=== PATIENT | female | born 1985 | race Caucasian/White ===

== ENCOUNTER 2021-08-20 11:57 | Outpatient (CLI) | payer BC | END 2021-08-20 11:58 | disposition home or self-care (01) | LOC: CSHLAB 11:57 | PROVIDERS: ATTEND Obstetrics & Gynecology | DX: Z01.812 Encounter for preprocedural laboratory examination (principal); Z20.822 Contact with and (suspected) exposure to COVID-19; O02.1 Missed abortion | CPT/HCPCS: 85027; 86850; 86900; 86901; U0003; U0005 ==

== ENCOUNTER → 2021-08-24 | Day surgery (SDC) | payer BC ==
[2021-08-20 15:38] LABS: Mean Corpuscular HGB CONC 33.3 g/dL (32.0-36.0); Mean Corpuscular Hemoglobin 29.8 pg (27.0-33.0); Mean Corpuscular Volume 89.4 fl (81.6-98.3); Mean Platelet Volume 10.1 fl (7.4-10.4); Platelet Count 292 10x3/uL (150-450); RBC Distribution Width 12.2 % (11.5-14.5); Red Blood Cell (RBC) Count 4.36 10x6/uL (3.90-5.03); White Blood Cell (WBC) Count 6.7 10x3/uL (3.5-10.5)
[2021-08-20 19:43] LABS: SARS-CoV-2 PCR by NAA Not Detected (NotDetected)
[2021-08-23 09:52] VITALS: BMI 34.2
[~2021-08-24] MED LIST: CeleCOXIB 100 MG CAP ONE; Dexamethasone 4 mg/ml Vial ONE; Fentanyl 100 MCG/2 ML VIAL ONE; Ketorolac Tromethamine 30 MG/ML VIAL ONE; Lidocaine 1% PF 5 ML VIAL ONE; Midazolam HCl 2 mg/2 ml Vial ONE; Morphine 4 MG/ML VIAL ONE; Ondansetron PF 4 MG/2 ML Vial ONE; PROPOFOL 20 ML ONE
== END ==
LOC: CSHSDC 10:01
PROVIDERS: ATTEND Obstetrics & Gynecology
PROC: 10D17Z9 Manual Extraction of Products of Conception, Retained, Via Natural or Artificial Opening (ICD-10-PCS; principal; 2021-08-24)
DX: O02.1 Missed abortion (principal); J45.909 Unspecified asthma, uncomplicated; I10 Essential (primary) hypertension; Z88.5 Allergy status to narcotic agent; Z79.899 Other long term (current) drug therapy
CPT/HCPCS: 36415; 85027; 86850; 86900; 86901; 88305; J1100; J1885; J2250; J2270; J2405; J2704; J3010; U0003; U0005

== ENCOUNTER 2022-08-23 15:59 | Inpatient (IN) | payer BC ==
[~2022-08-23 15:59] MED LIST changes: +Bupivacaine 0.25% HCL 30 ML VIAL ONE; +Bupivacaine/Epinephrine 0.25% 30 ML VIAL ONE; -CeleCOXIB 100 MG CAP ONE; -Dexamethasone 4 mg/ml Vial ONE; -Fentanyl 100 MCG/2 ML VIAL ONE; -Ketorolac Tromethamine 30 MG/ML VIAL ONE; -Lidocaine 1% PF 5 ML VIAL ONE; +Lidocaine 2% PF 5 ML VIAL ONE; -Midazolam HCl 2 mg/2 ml Vial ONE; -Morphine 4 MG/ML VIAL ONE; -Ondansetron PF 4 MG/2 ML Vial ONE; -PROPOFOL 20 ML ONE
[2022-08-23 16:36] VITALS: BMI 36.3
[2022-08-23] MEDS ORDERED: Lorazepam 2 MG/ML VIAL SLOW IVP PRN ×2 (16:47→17:13)
[2022-08-23] MEDS ORDERED: hydrALAZINE 20 MG/ML VIAL SLOW IVP PRN ×3 (16:47→17:13)
[2022-08-23] MEDS ORDERED: Magnesium Sulfate 20 gm/500 ml 20 GM/500 ML BAG ONE (17:02)
[2022-08-23] MEDS ORDERED: hydrALAZINE 20 MG/ML VIAL ONE (17:03)
[2022-08-23] MEDS ORDERED: Ondansetron PF 4 MG/2 ML Vial IVP PRN (17:13)
[2022-08-23] MEDS ORDERED: Lidocaine 1% (PF) 30 ML VIAL SC PRN (17:13)
[2022-08-23] MEDS ORDERED: Calcium Gluc 4.6 MEQ/10 ML (100 MG/ML) SLOW IVP PRN (17:13)
[2022-08-23] MEDS ORDERED: Promethazine HCl 25 MG/ML VIAL IM PRN (17:13)
[2022-08-23] MEDS ORDERED: Labetalol HCl 100 MG/20 ML VIAL SLOW IVP PRN (17:13)
[2022-08-23] MEDS ORDERED: Ibuprofen 800 MG TAB PO PRN (17:13)
[2022-08-23] MEDS ORDERED: NS w/ Oxytocin 30 units 500 ML IV SCH ×2 (17:15)
[2022-08-23] MEDS ORDERED: Penicillin G Potassium 5 MILL.UNITS in Sodium Chloride 0.9% 100 ML IVPB SCH (17:15)
[2022-08-23 17:36] LABS: #Eosinphils 0.1 10x3/uL (0.0-0.5); #Monocytes 0.6 10x3/uL (0.0-1.1); #Neutrophils 8.2 10x3/uL (1.5-8.4); %Basophils 0.2 % (0.0-2.0); %Eosinophils 0.4 % (0.0-6.0); %Lymphocytes 21.1 % (18.0-47.0); %Monocytes 5.1 % (0.0-10.0); %Neutrophils 72.2 % (40.0-75.0); Hemoglobin 12.1 g/dL (12.0-15.5); Mean Corpuscular HGB CONC 35.4 g/dL (32.0-36.0); Mean Corpuscular Hemoglobin 30.5 pg (27.0-33.0); Mean Corpuscular Volume 86.1 fl (81.6-98.3); Mean Platelet Volume 10.1 fl (7.4-10.4); Platelet Count 288 10x3/uL (150-450); RBC Distribution Width 13.6 % (11.5-14.5); Red Blood Cell (RBC) Count 3.97 10x6/uL (3.90-5.03); White Blood Cell (WBC) Count 11.4 10x3/uL (3.5-10.5)
[2022-08-23 17:49] LABS: ALT (SGPT) Less than 6 U/L (8-55); AST (SGOT) 13 U/L (5-34); Albumin 3.5 g/dL (3.5-5.0); Alkaline Phosphatase 141 U/L (40-110); Anion Gap 14 mmol/L (10-20); BUN (Urea Nitrogen) 6 mg/dL (7.0-18.7); Bilirubin, Total 0.3 mg/dL (0.2-1.2); Calc. Creatinine Clearance 165 mL/min (70-130); Calcium 9.4 mg/dL (7.8-10.44); Carbon Dioxide 20 mmol/L (22-29); Chloride 105 mmol/L (98-107); Estimated GFR 116; Globulin 2.9 g/dL (2.4-3.5); Glucose 89 mg/dL (70-105); Potassium 3.4 mmol/L (3.5-5.1); Protein, Total 6.4 g/dL (6.0-8.3); Sodium 136 mmol/L (136-145)
[2022-08-23 18:09] LABS: Syphilis Antibody Nonreactive (Nonreactive); Syphilis Antibody Index 0.04 S/CO (<1.00 Non-Reactive)
[2022-08-23 18:10] LABS: HBSAg Index 0.18 S/CO (0-0.99); Hep B Surf Ag Non-Reactive S/CO (NonReactive)
[2022-08-23] MEDS: Labetalol HCl 100 MG/20 ML VIAL SLOW IVP PRN (18:19)
[2022-08-23 18:31] LABS: Creatinine, Urine 63.59 mg/dL (47-110)
[2022-08-23] MEDS: Misoprostol 100 MCG TAB VAG SCH ×2 (19:23→22:45)
[2022-08-24] MEDS ORDERED: Fentanyl 2 mcg/Bup 0.1% Cadd 100 ML ONE ×2 (01:11→08:20)
[2022-08-24] MEDS ORDERED: Moisturizing Cream (Eucerin) 113 GM JAR TOP PRN ×2 (01:52→12:57)
[2022-08-24] MEDS ORDERED: diphenhydrAMINE 50 MG/ML VIAL IVP PRN ×2 (01:52→12:57)
[2022-08-24] MEDS ORDERED: Acetaminophen 325 MG TAB PO PRN ×2 (01:52→12:57)
[2022-08-24] MEDS ORDERED: Naloxone HCl 0.4 mg/ml Vial IVP PRN ×4 (01:52→12:57)
[2022-08-24] MEDS ORDERED: Promethazine HCl 25 MG/ML VIAL IM PRN ×2 (01:52→12:57)
[2022-08-24] MEDS ORDERED: Lactated Ringer's 500 ML IV PRN ×2 (01:52→12:57)
[2022-08-24] MEDS ORDERED: Ondansetron PF 4 MG/2 ML Vial IVP PRN ×2 (01:52→12:57)
[2022-08-24] MEDS ORDERED: ePHEDrine Sulfate 50 MG/10 ML VIAL SLOW IVP PRN ×2 (01:52→12:57)
[2022-08-24] MEDS ORDERED: Communication Order-Pharmacy FS SCH ×2 (02:00→13:00)
[2022-08-24] MEDS ORDERED: Fentanyl 2 mcg/Bupivacaine 0.1% Cassette 100 ML EPIDURAL SCH (02:00)
[2022-08-24] MEDS ORDERED: Magnesium Sulfate 20 gm/500 ml 20 GM/500 ML BAG ONE ×2 (02:10→12:27)
[2022-08-24 02:30] LABS: SARS-CoV-2 NAA Rapid Test Not Detected (NotDetected)
[2022-08-24] MEDS ORDERED: Betamet Acet/Betamet Na Ph 30 MG/5 ML VIAL IM SCH (04:00)
[2022-08-24] MEDS: Misoprostol 100 MCG TAB VAG SCH (05:20)
[2022-08-24] MEDS: Lactated Ringer's 1,000 ML IV SCH (05:27)
[2022-08-24] MEDS: Penicillin G 2.5 MILL.units 2.5 MILL.UNITS in Premix Bag 1 BAG IVPB SCH ×2 (06:21→06:22)
[2022-08-24] MEDS: Levothyroxine Sodium 75 MCG TAB PO SCH (07:54)
[2022-08-24] MEDS: Labetalol HCl 100 MG/20 ML VIAL SLOW IVP PRN ×2 (09:44→17:30)
[2022-08-24] MEDS: NIFEdipine XL 30 MG TAB PO SCH (09:44)
[2022-08-24] MEDS: Misoprostol 100 MCG TAB PO SCH ×2 (12:22→18:01)
[2022-08-25] MEDS ORDERED: Magnesium Sulfate 20 gm/500 ml 20 GM/500 ML BAG ONE ×2 (00:02→10:06)
[2022-08-25] MEDS: Lactated Ringer's 1,000 ML IV SCH (00:56)
[2022-08-25] MEDS ORDERED: Calcium Carbonate 500 MG ChewTAB ONE (01:16)
[2022-08-25] MEDS ORDERED: Penicillin G Potassium 5 MILL.UNITS VIAL ONE (01:18)
[2022-08-25] MEDS: Levothyroxine Sodium 75 MCG TAB PO SCH (06:41)
[2022-08-25] MEDS: Penicillin G 2.5 MILL.units 2.5 MILL.UNITS in Premix Bag 1 BAG IVPB SCH ×2 (06:42→06:43)
[2022-08-25] MEDS: NIFEdipine XL 30 MG TAB PO SCH ×2 (06:42→07:20)
[2022-08-25] MEDS ORDERED: CEFAZOLIN 2 GM VIAL ONE (08:49)
[2022-08-25] MEDS ORDERED: Famotidine/PF 20 mg/2ml Vial ONE (08:50)
[2022-08-25] MEDS ORDERED: Bicitra 30 ML UDCUP ONE (08:50)
[2022-08-25] MEDS: hydrALAZINE 20 MG/ML VIAL SLOW IVP PRN ×2 (08:52→14:20)
[2022-08-25 09:09] LABS: Magnesium 6.3 mg/dL (1.6-2.6)
[2022-08-25] MEDS ORDERED: Carboprost 250 MCG/ML AMP ONE ×2 (09:10→15:09)
[2022-08-25] MEDS ORDERED: Misoprostol 200 MCG TAB ONE ×2 (09:10→14:47)
[2022-08-25] MEDS ORDERED: Tranexamic Acid 1,000 MG/10 ML VIAL ONE ×2 (09:10→15:28)
[2022-08-25] MEDS ORDERED: Oxytocin 10 UNITS/ML VIAL ONE ×2 (09:17→10:11)
[2022-08-25] MEDS ORDERED: Dexamethasone 4 mg/ml Vial ONE (09:18)
[2022-08-25] MEDS ORDERED: Ondansetron PF 4 MG/2 ML Vial ONE (09:18)
[2022-08-25] MEDS ORDERED: Lidocaine 2% Jelly 5 ML TUBE ONE (09:19)
[2022-08-25] MEDS ORDERED: Morphine PF 10 MG/10 ML VIAL ONE (09:20)
[2022-08-25] MEDS ORDERED: Bicitra 30 ML UDCUP PO PRN (09:21)
[2022-08-25] MEDS ORDERED: Famotidine/PF 20 mg/2ml Vial SLOW IVP PRN (09:21)
[2022-08-25] MEDS ORDERED: CEFAZOLIN 2 GM in Sodium Chloride 0.9% 100 ML IVPB SCH (09:30)
[2022-08-25] MEDS ORDERED: Azithromycin 500 MG in Sodium Chloride 0.9% 250 ML 250 ML IVPB SCH (09:30)
[2022-08-25] MEDS ORDERED: Lidocaine 2% MPF 10 ML AMP (For Epidural Use) ONE (09:47)
[2022-08-25] MEDS ORDERED: Ketamine 50 MG/ML (10ML VIAL) ONE (09:59)
[2022-08-25] MEDS ORDERED: Fentanyl 100 MCG/2 ML VIAL ONE ×2 (10:02→15:42)
[2022-08-25] MEDS ORDERED: Acetaminophen/Codeine 30-300mg Tablet PO PRN ×2 (10:34)
[2022-08-25 10:47] LABS: RapidComm Collect By RN
[2022-08-25 10:48] LABS: RapidComm Collect By RN; pH (Cord, venous) 7.371 (7.250-7.350)
[2022-08-25] MEDS ORDERED: Ondansetron PF 4 MG/2 ML Vial IVP PRN (10:51)
[2022-08-25] MEDS ORDERED: Fentanyl 100 MCG/2 ML VIAL SLOW IVP PRN (10:51)
[2022-08-25] MEDS ORDERED: Promethazine HCl 25 MG SUPP PR PRN (10:51)
[2022-08-25] MEDS ORDERED: Promethazine HCl 25 MG/ML VIAL IM PRN (10:51)
[2022-08-25] MEDS ORDERED: Moisturizing Cream (Eucerin) 113 GM JAR TOP PRN (10:51)
[2022-08-25] MEDS ORDERED: diphenhydrAMINE 50 MG/ML VIAL IVP PRN (10:51)
[2022-08-25] MEDS ORDERED: Naloxone HCl 0.4 mg/ml Vial IVP PRN ×2 (10:51)
[2022-08-25] MEDS ORDERED: HYDROmorphone 2 MG/ML VIAL SLOW IVP PRN (10:51)
[2022-08-25] MEDS ORDERED: Naloxone HCl 0.4 mg/ml Vial IV PRN (10:51)
[2022-08-25] MEDS ORDERED: Ondansetron HCl/PF 4 MG/2 ML Vial IVP PRN (10:51)
[2022-08-25] MEDS ORDERED: Meperidine HCl/PF 25 MG/ML VIAL SLOW IVP PRN (10:51)
[2022-08-25] MEDS ORDERED: Ketorolac Tromethamine 30 MG/ML VIAL IVP SCH (11:00)
[2022-08-25] MEDS ORDERED: Communication Order-Pharmacy FS SCH (11:00)
[2022-08-25] MEDS: Ketorolac Tromethamine 30 MG/ML VIAL IVP PRN ×2 (12:52→20:21)
[2022-08-25] MEDS ORDERED: hydrALAZINE 20 MG/ML VIAL ONE (13:19)
[2022-08-25] MEDS ORDERED: hydrALAZINE 20 MG/ML VIAL SLOW IVP PRN (14:32)
[2022-08-25] MEDS ORDERED: Labetalol HCl 100 MG/20 ML VIAL SLOW IVP PRN ×2 (14:32)
[2022-08-25] MEDS ORDERED: Carboprost 250 MCG/ML AMP IM SCH (15:30)
[2022-08-25] MEDS ORDERED: Misoprostol 200 MCG TAB PR SCH (15:30)
[2022-08-25] MEDS ORDERED: Fentanyl 100 MCG/2 ML VIAL SLOW IVP SCH (16:00)
[2022-08-25] MEDS ORDERED: Labetalol HCl 100 MG TAB PO STA (16:43)
[2022-08-25 16:59] LABS: Hemoglobin 10.8 g/dL (12.0-15.5); Mean Corpuscular HGB CONC 31.8 g/dL (32.0-36.0); Mean Corpuscular Hemoglobin 30.1 pg (27.0-33.0); Mean Corpuscular Volume 94.7 fl (81.6-98.3); Mean Platelet Volume 11.1 fl (7.4-10.4); Platelet Count 220 10x3/uL (150-450); RBC Distribution Width 14.3 % (11.5-14.5); Red Blood Cell (RBC) Count 3.59 10x6/uL (3.90-5.03); White Blood Cell (WBC) Count 19.8 10x3/uL (3.5-10.5)
[2022-08-25 17:12] LABS: D-Dimer Test 4.4 mg/L FEU (0.19-0.50); INR-International Normal Ratio 0.8; Prothrombin Time 8.9 sec (9.5-12.1)
[2022-08-25 17:13] LABS: PTT 21.2 sec (22.0-33.0)
[2022-08-26] MEDS ORDERED: Ondansetron PF 4 MG/2 ML Vial IVP PRN (03:12)
[2022-08-26] MEDS ORDERED: hydrALAZINE 20 MG/ML VIAL SLOW IVP PRN ×2 (03:12→12:38)
[2022-08-26] MEDS ORDERED: diphenhydrAMINE 25 MG CAP PO PRN (03:12)
[2022-08-26] MEDS ORDERED: Simethicone Chewable 80 MG TAB PO PRN (03:12)
[2022-08-26] MEDS ORDERED: NS w/ Oxytocin 30 units 500 ML IV SCH (03:12)
[2022-08-26] MEDS ORDERED: Misoprostol 200 MCG TAB PR PRN (03:12)
[2022-08-26] MEDS ORDERED: Boostrix 0.5 ML (Tdap) VIAL (>/=7 yrs of age) IM ONE (03:12)
[2022-08-26] MEDS ORDERED: Ferrous Sulfate 325 MG TAB PO SCH (03:30)
[2022-08-26] MEDS: Ketorolac Tromethamine 30 MG/ML VIAL IVP PRN ×2 (03:31→09:34)
[2022-08-26 04:25] LABS: Mean Corpuscular HGB CONC 33.5 g/dL (32.0-36.0); Mean Corpuscular Hemoglobin 29.7 pg (27.0-33.0); Mean Corpuscular Volume 88.8 fl (81.6-98.3); Mean Platelet Volume 10.4 fl (7.4-10.4); Platelet Count 246 10x3/uL (150-450); RBC Distribution Width 14.2 % (11.5-14.5); Red Blood Cell (RBC) Count 3.03 10x6/uL (3.90-5.03); White Blood Cell (WBC) Count 13.8 10x3/uL (3.5-10.5)
[2022-08-26] MEDS ORDERED: Magnesium Sulfate 20 gm/500 ml 20 GM/500 ML BAG ONE (04:38)
[2022-08-26] MEDS: Prenatal Vitamin 1 TAB PO SCH ×2 (08:55→09:20)
[2022-08-26] MEDS: Enoxaparin Sodium 40 MG/0.4 ML SYRINGE SC SCH (08:56)
[2022-08-26] MEDS: NIFEdipine XL 30 MG TAB PO SCH ×2 (08:56→09:20)
[2022-08-26] MEDS: Levothyroxine Sodium 75 MCG TAB PO SCH ×2 (08:56→09:20)
[2022-08-26] MEDS: Labetalol HCl 100 MG TAB PO SCH ×3 (09:34→19:48)
[2022-08-26] MEDS ORDERED: Lanolin Ointment 7 GM TUBE TOP PRN (12:38)
[2022-08-26] MEDS: Acetaminophen/Codeine 30-300mg Tablet PO PRN ×2 (12:45→19:55)
[2022-08-26] MEDS: Ibuprofen 800 MG TAB PO SCH ×2 (14:44→23:04)
[2022-08-26] MEDS: Ferrous Sulfate 325 MG TAB PO SCH (19:17)
[2022-08-26] MEDS: Misoprostol 100 MCG TAB PO SCH (19:18)
[2022-08-26] MEDS: Penicillin G 2.5 MILL.units 2.5 MILL.UNITS in Premix Bag 1 BAG IVPB SCH ×5 (19:22→22:22)
[2022-08-26] MEDS: Misoprostol 100 MCG TAB VAG SCH ×5 (19:23→22:22)
[2022-08-26] MEDS: Lactated Ringer's 1,000 ML IV SCH ×3 (19:24→19:27)
[2022-08-26] MEDS: Labetalol HCl 200 MG TAB PO SCH (20:48)
[2022-08-26] MEDS: Docusate 100 MG CAP PO SCH (20:48)
[2022-08-27] MEDS: Acetaminophen/Codeine 30-300mg Tablet PO PRN ×3 (00:05→18:57)
[2022-08-27 05:25] LABS: Hemoglobin 7.8 g/dL (12.0-15.5); Mean Corpuscular HGB CONC 33.8 g/dL (32.0-36.0); Mean Corpuscular Volume 88.8 fl (81.6-98.3); Mean Platelet Volume 10.6 fl (7.4-10.4); Platelet Count 232 10x3/uL (150-450); White Blood Cell (WBC) Count 9.9 10x3/uL (3.5-10.5)
[2022-08-27] MEDS: Ibuprofen 800 MG TAB PO SCH ×3 (06:17→22:34)
[2022-08-27] MEDS: Docusate 100 MG CAP PO SCH ×2 (08:26→20:00)
[2022-08-27] MEDS: NIFEdipine XL 60 MG TAB PO SCH ×2 (08:28→14:40)
[2022-08-27] MEDS: Levothyroxine Sodium 75 MCG TAB PO SCH (08:28)
[2022-08-27] MEDS: Enoxaparin Sodium 40 MG/0.4 ML SYRINGE SC SCH (08:30)
[2022-08-27] MEDS: Labetalol HCl 200 MG TAB PO SCH ×2 (08:30→20:09)
[2022-08-27] MEDS: Ferrous Sulfate 325 MG TAB PO SCH ×2 (08:30→20:00)
[2022-08-28] MEDS: Acetaminophen/Codeine 30-300mg Tablet PO PRN ×2 (04:06→21:43)
[2022-08-28] MEDS: Ibuprofen 800 MG TAB PO SCH ×3 (06:06→22:46)
[2022-08-28] MEDS: Prenatal Vitamin 1 TAB PO SCH (08:00)
[2022-08-28] MEDS: Enoxaparin Sodium 40 MG/0.4 ML SYRINGE SC SCH (08:08)
[2022-08-28] MEDS: NIFEdipine XL 60 MG TAB PO SCH (08:09)
[2022-08-28] MEDS: Labetalol HCl 200 MG TAB PO SCH ×3 (08:10→21:42)
[2022-08-28] MEDS: Docusate 100 MG CAP PO SCH ×2 (08:10→22:46)
[2022-08-28] MEDS: Ferrous Sulfate 325 MG TAB PO SCH ×2 (08:10→22:46)
[2022-08-28] MEDS: Levothyroxine Sodium 75 MCG TAB PO SCH (08:11)
[2022-08-28 13:06] VITALS: TEMP 98
[2022-08-28 16:52] VITALS: BP 153/94
== END 2022-08-28 21:50 | disposition home or self-care (01) | DRG 787 ==
LOC: CSHLD/OP 15:59 → CSHLD 17:04 → CSHPP 08-26 14:15
PROVIDERS: ADMIT Obstetrics & Gynecology; ATTEND Obstetrics & Gynecology
PROC: 10D00Z1 Extraction of Products of Conception, Low, Open Approach (ICD-10-PCS; principal; 2022-08-25)
DX: O11.4 Pre-existing hypertension with pre-eclampsia, complicating childbirth (principal); D68.61 Antiphospholipid syndrome; O99.12 Other diseases of the blood and blood-forming organs and certain disorders involving the immune mechanism complicating childbirth; O10.92 Unspecified pre-existing hypertension complicating childbirth; Z3A.33 33 weeks gestation of pregnancy; Z37.0 Single live birth; Z20.822 Contact with and (suspected) exposure to COVID-19; E03.9 Hypothyroidism, unspecified; J45.909 Unspecified asthma, uncomplicated; O99.52 Diseases of the respiratory system complicating childbirth; O99.284 Endocrine, nutritional and metabolic diseases complicating childbirth; Z79.890 Hormone replacement therapy; Z79.899 Other long term (current) drug therapy; Z79.82 Long term (current) use of aspirin; Z88.6 Allergy status to analgesic agent; O61.0 Failed medical induction of labor; O32.8XX0 Maternal care for other malpresentation of fetus, not applicable or unspecified; O72.1 Other immediate postpartum hemorrhage; F41.9 Anxiety disorder, unspecified; O99.345 Other mental disorders complicating the puerperium; D50.8 Other iron deficiency anemias; O90.81 Anemia of the puerperium
CPT/HCPCS: 36415; 51702; 80053; 82570; 82805; 83735; 84156; 85025; 85027; 85049; 85300; 85362; 85379; 85384; 85610; 85730; 86780; 86850; 86900; 86901; 87340; 99285; J0360; J0702; J1100; J1650; J1885; J2001; J2274; J2405; J2540; J2590; J3010; J3475; J7120; S0020; S0028; U0002